=== PATIENT | male | born 1980 | race Caucasian/White ===

== ENCOUNTER 2023-02-18 16:22 | Emergency (ER) | payer OTHER, SELFPAY ==
[2023-02-18 16:28] VITALS: BP 125/76; PULSE 76; RESP 16; TEMP 36.8; O2SAT 97; BMI 29.7
--- NOTE | 2023-02-18 16:54 | ED_ITS ---
HPI - General Adult General Time Seen by Provider: 17:04 Date Seen: 02/18/23 Chief complaint: Extremity Pain/Injury, Lower Stated complaint: Right ankle injury Time Seen by Provider: 02/18/23 16:23 Source: patient Mode of arrival: ambulatory Limitations: no limitations History of Present Illness HPI narrative: Patient is a 42-year-old male presented emergency department for right ankle pain. He states he was and his since per when he was jumping up and down and felt a pop the posterior screw was right ankle and swelling. He is concerned he tore his Achilles tendon. Patient states there is only pain when he moves but does note the pain goes intermediate up his calf. Notes in the past and he tore his quadriceps tendon. Denies any injuries. Denies numbness of the ankle. Related Data Home Medications Medication Instructions Recorded Confirmed No Known Home Medications 02/18/23 02/18/23 Allergies Allergy/AdvReac Type Severity Reaction Status Date / Time No Known Drug Allergies Allergy Verified 02/18/23 16:32 Review of Systems Status of ROS: Reports: 6 or more systems reviewed and unremarkable except as noted in History and below PFSH PFSH Social History Smoking Status: Never smoker Do you use any of these nicotine containing products: None Second hand tobacco smoke exposure: No How often do you have a drink containing alcohol: 2-3 times a week AUDIT-C Alcohol total score: 3 Non-prescribed substance use: denies use service: No Exam Narrative: Exam Narrative: Const: Well-nourished, Well-developed, in mild distress Eyes: PERRL, no conjunctival injection, and symmetrical lids MSK: Tenderness noted to right posterior ankle and right mid calf region. Positive Wellington test. Unable to palpate the Achilles tendon on the right side. Skin: Warm, Dry. No rashes or lesions. Neuro: Normal Muscle tone, No focal neurological deficits. Psych: Awake, Alert, & Oriented x3. Appropriate mood and affect. Const: Vital Signs, click to edit/add: Vital Signs - 24 hr 02/18/23 16:28 02/18/23 18:57 Temperature 98.3 F Pulse Rate [Pulse Oximeter] 76 59 L Respiratory Rate 16 16 Blood Pressure [Ri ght Upper Arm] 125/76 115/76 Pulse Oximetry 97 97 Oxygen Delivery Me thod Room Air Room Air Course Vital Signs Vital signs: Initial Vital Signs Temperature 98.3 F 02/18/23 16:28 Temperature Source Temporal Artery Scan 02/18/23 16:28 Pulse Rate 76 02/18/23 16:28 Respiratory Rate 16 02/18/23 16:28 Blood Pressure 125/76 02/18/23 16:28 Blood Pressure Mean 92 02/18/23 16:28 Blood Pressure Position Sitting 02/18/23 16:28 Pulse Oximetry 97 02/18/23 16:28 Oxygen Delivery Method Room Air 02/18/23 16:28 Vital Signs Temperature 98.3 F 02/18/23 16:28 Pulse Rate 76 02/18/23 16:28 Respiratory Rate 16 02/18/23 16:28 Blood Pressure 125/76 02/18/23 16:28 Pulse Oximetry 97 02/18/23 16:28 Oxygen Delivery Method Room Air 02/18/23 16:28 Temperature 98.3 F 02/18/23 16:28 Pulse Rate 59 L 02/18/23 18:57 Respiratory Rate 16 02/18/23 18:57 Blood Pressure 115/76 02/18/23 18:57 Pulse Oximetry 97 02/18/23 18:57 Oxygen Delivery Method Room Air 02/18/23 18:57 Medical Decision Making MDM Narrative Medical decision making narrative: Patient's fluids here male presents emergency department for right ankle pain. States he was jumping down with her in a pop in his ankle. He has no swelling is concerned that he tore his Achilles tendon. Says the pain goes midway up his calf. Denies injury to his Achilles tendon in the past. On exam I and unable to palpate the Achilles tendon this time. I am concerned for rupture and did a point of care ultrasound. On my ultrasound it appears to show a completely torn Achilles tendon. Spoke to Orthopedics and they recommended an MRI for better visualization. MRI was ordered. It again shows completely toward the Achilles tendon. Patient will be placed in a short-leg splint in complete plantar flexion. Patient is given Toradol morphine for pain prior to the splint being placed. Discharge Plan Discharge Clinical Impression: Achilles tendon rupture Qualifiers: Encounter type: initial encounter Laterality: right Qualified Code(s): S86.011A - Strain of right Achilles tendon, initial encounter Patient Disposition: Home, Self-Care Condition: Stable Instructions: Achilles Tendon Rupture (ED) Additional Instructions: Take ibuprofen Tylenol for pain. Follow-up with orthopedics. Remove splint if you know should toes become discolored or painful. Use crutches and be nonweightbearing to that right foot. Return for new or worsening symptoms Prescriptions: No Action No Known Home Medications Follow Up/Referrals: Terence Roper MD [Primary Care Provider] - Stand Alone Forms: [employer] Info Instructions
--- NOTE | 2023-02-18 16:56 | CRLHL7_ITS ---
For Patients: As a result of the Century Cures Act, medical imaging exams and procedure reports are released immediately into your electronic medical record. You may view this report before your referring provider. If you have questions, please contact your health care provider. INDICATION: Achilles tendon rupture. COMPARISON: None. TECHNIQUE: Noncontrast MRI scan of the right ankle. FINDINGS: There is complete rupture of the Achilles tendon centered approximately 5 cm proximal to its calcaneus attachment. There is an approximate 4.5 cm gap in the torn tendon free edges. Associated hemorrhage and edema is present within the surrounding tissues. The bone marrow signal throughout the ankle and hindfoot is normal. No fracture is identified. There is a mild sprain of the calcaneofibular ligament. The remaining intrinsic ankle ligaments are intact. There is tendinosis and a small longitudinal split tear of the peroneus brevis. The peroneus longus tendon is intact. The tibialis posterior, flexor digitorum and flexor hallucis longus tendon as well as tibialis anterior, extensor hallucis longus and extensor digitorum longus tendons are intact. The plantar fascia is intact. IMPRESSION: 1. Achilles tendon rupture with retraction and approximate 4.5 centimeter rupture gap. 2. Mild sprain of the calcaneofibular ligament. 3. Mild tendinosis and small longitudinal split tear of the peroneus brevis. Dictated by Remy Moss MD @ 02/19/2023 7:21:38 AM (Electronically Signed)
[2023-02-18 18:57] VITALS: BP 115/76; PULSE 59; RESP 16; O2SAT 97
[2023-02-18] MEDS: KETOROLAC 30 MG/ML inj IM (19:07)
[2023-02-18] MEDS: MORPHINE 4 MG/ML INJ IM (19:08)
--- NOTE | 2023-02-18 19:14 | ED.NURSE ---
has been medicated with toradol 30mg and morphine 4mg (IM) (prior to getting splint placed). dr moreno was in to explain findings.
--- NOTE | 2023-02-18 19:40 | ED.NURSE ---
orthoglass splint applied and has own crutches. dc to home. will make his own appointment with ortho.
== END 2023-02-18 19:41 | disposition home or self-care (01) ==
PROVIDERS: Emergency Provider Student in an Organized Health Care Education/Training Program; PCP Family Medicine
DX: S86.011A Strain of right Achilles tendon, initial encounter (principal); Y93.39 Activity, other involving climbing, rappelling and jumping off
CPT/HCPCS: 29515; 73721; 96372; 99283; J1885; J2270

== ENCOUNTER 2023-02-28 06:23 | Day surgery (SDC) | payer OTHER, SELFPAY ==
[2023-02-28] VITALS (18 sets, daily range): BP systolic 108–134; BP diastolic 50–95; PULSE 48–58; RESP 12–16; TEMP 36.2–36.7; O2SAT 97–100; BMI 29.5
[2023-02-28] MEDS: LACTATED RINGERS 500 ML 500 ML 30 ML IV ×2 (06:30→08:10)
[2023-02-28] MEDS: SODIUM CHLORIDE 0.9 % (FLUSH) 10 ML SYRINGE IVF (06:56)
[2023-02-28] MEDS: MIDAZOLAM HCL 1 MG/ML inj 2 MG IVP (07:35)
[2023-02-28] MEDS: fentaNYL 100 MCG/2 ML inj IVP (07:35)
--- NOTE | 2023-02-28 07:46 | SUR.PREOP ---
TIME?OUT:?0735 PT/RN/MDA?VERIFICATION?OF?SURGICAL?SITE Right Leg,?PROCEDURE Pop block,?AND?CONSENT OBTAINED?PRIOR?TO?INVASIVE?PROCEDURE.
[2023-02-28] MEDS: CEFAZOLIN 2 GM in 0.9 % SODIUM CHLORIDE Mini-bag 100 ML IVPB (07:52)
--- NOTE | 2023-02-28 08:00 | W.ANESCHARGE ---
Anesthesia Charges Start Date/Time Anesthesia Start Date: 02/28/23 Anesthesia Start Time: 07:42 Stop Date/Time Anesthesia Stop Date: 02/28/23 Anesthesia Stop Time: 09:43
--- NOTE | 2023-02-28 08:13 | W.ANESCHARGE ---
Anesthesia Charges Start Date/Time Anesthesia Start Date: 02/28/23 Anesthesia Start Time: 07:42 Stop Date/Time Anesthesia Stop Date: 02/28/23 Anesthesia Stop Time: 09:43
--- NOTE | 2023-02-28 08:29 | W.PM.NB ---
Nerve Block Nerve Block Time Seen by Provider: 07:38 Date Seen: 02/28/23 Type of block requested by surgeon for post-operative analgesia: popliteal Side: right Time out performed: Yes Verification of patient name: Yes Verification of date of : Yes Site marking: site marked Name of person performing procedure: Wali Continuous monitoring Was continuous monitoring of O2 sat, B/P, environmental monitoring technician, recorded every 15 minutes?: Yes Procedure Checklist: sterile prep, needles and gloves Ultrasound guided. Images saved: Yes Medications given in 5ml increments after negative aspiration: Ropivicaine %: 0.5 mL: 20 Needle gauge: 22 Patient tolerated procedure well: Yes Additional comments: Needle noted adjacent to nerve Block Charges Block Charge (with Pro Fee): Sciatic Nerve Use of Ultrasound Machine for Block: Yes- US Guidance/pain block
--- NOTE | 2023-02-28 09:10 | P.ORPRC_ITS ---
Procedure Note Date of procedure: 02/28/23 Procedure: PREOPERATIVE DIAGNOSES: 1. Right Achilles tendon rupture, acute, closed POSTOPERATIVE DIAGNOSES: 1. Right Achilles tendon rupture, acute, closed NAME OF OPERATION: 1. Right Achilles tendon repair using PARS (percutaneous) device. SURGEON: Zay Berry MD ENVIRONMENTAL MONITORING SPECIALIST: Preston Mahan PA-C; Of note, an assistant professor of surgery was critical for this case to aide in patient positioning, leg manipulation, tissue retraction, closure, patient safety & splinting. ANESTHESIA: Spinal plus popliteal block EBL: 5 mL IMPLANTS: Arthrex 4.75 mm BioComposite SwiveLock suture anchor-x2. TOURNIQUET: 50 min at 300 torr. INDICATIONS: The patient is a pleasant 42-year-old male who sustained a right Achilles tendon rupture site within the last 10 days. He thought someone had kicked him in the back of his heel. He had difficulty walking and jumping thereafter. Thereafter, workup included an MRI which revealed a complete Achilles tendon rupture with retraction proximally. Given the patient's desire to remain physically active, particular with explosive sports such as basketball, surgery was recommended. FINDINGS: Closed, achilles tendon rupture. Hemorrhage was encountered after penetrating the paratenon. The Achilles indeed had migrated proximally, and the ends of the tendon were frayed like a mop end. PROCEDURE: Following a thorough discussion of risks, benefits, and alternatives, consent was obtained and the left Achilles was marked. The patient was brought to the operating room and placed supine on the operating table. Induction of anesthesia was undertaken. Appropriate time out was performed identifying pro per patient, site and procedure. 2 g IV Ancef was administered within 1 hour of incision preoperatively. The right lower extremity was prepped and draped in the appropriate sterile fashion using ChloraPrep prep after the patient had been positioned prone with all bone prominences well padded, and soft anatomic prominences free from pressure. The limb was exsanguinated and the tourniquet inflated. A transverse incision was made overlying the palpable gap in the Achilles tendon which ended up being approximately 6 cm proximal to the Achilles insertion on the posterior calcaneus. Sharp incision through skin and subcutaneous tissue, while protecting any crossing neurologic structures, was performed allowing the paratenon to be identified. This was also divided transversely, and indeed he morrhage was encountered. The tendon ends were identified, and freshen. The tendon was also freed from adhesions proximally circumferentially. Following this, the PARS device was inserted within the paratenon, and around the tendon itself. 7 different needles/sutures were passed according to the technique guide. #2 and 5 suture were looped underneath and through the locking cross stitches accordingly, and these were passed. The sutures were tugged on and found have an excellent control of the proximal Achilles tendon stump. Attention was then to the calcaneus. 2 small stab incisions were made medial and lateral to the convexity to the calcaneus posteriorly. Sharp incision through skin down to bone and hemostat to clear off the periosteum allowed us to drill, tap, and localized the planned anchors for the Achilles repair and a knotless fashion. The sutures were then passed through the distal tendon stump with the banana suture Lasso which came up through the tendon itself within the paratenon distally. After passing sutures, the foot was placed in maximum plantar flexion, and the sutures were secured into the drilled and tapped holes with 4.75 mm BioComposite SwiveLock suture anchor. This had excellent bite. The wound was thoroughly irrigated normal saline, and closure performed in layered fashion with #0 Vicryl for the paratenon, #2 Vicryl for subcutaneous, and 4-0 Statafix for subcuticular closure. Dermabond was applied, dressing applied, and a posterior splint applied with the foot in maximum plantar flexion. The patient was woken by anesthesia and transferred to PACU in stable condition. PLAN: 1. Elevate operative extremity. 2. Encouraged ice. 3. Percocet for pain as needed. 4. Toe-touch weight-bearing operative extremity 5. Follow up with PA visit in 10-14 days for splint removal and wound check. Transition to boot with heel lift and weightbear as tolerated at that time.
--- NOTE | 2023-02-28 10:24 | SUR.OPER ---
PATIENT QUESTIONS ANSWERED SATISFACTORILY PREOPERATIVELY.? PATIENT BROUGHT TO OR #2 PER CART AFTER ADMINISTRATION OF A BLOCK.? Patient positioned prone on OR #2 bed.? The perioperative?team supported arms bilaterally on arm boards.?Final approval of positioning by surgeon.?
--- NOTE | 2023-02-28 10:28 | SUR.PHASEI ---
patient met discharge criteria per anesthesia
== END 2023-02-28 11:54 | disposition home or self-care (01) ==
PROVIDERS: PCP Family Medicine; Visit Provider Orthopaedic Surgery Sports Medicine
PROC: (CPT 27650; principal; 2023-02-28 07:45)
DX: S86.011A Strain of right Achilles tendon, initial encounter (principal); G89.18 Other acute postprocedural pain
CPT/HCPCS: 27650; 01472; 64445; 76942; A4580; C1713; J0690; J2250; J2704; J2795; J3010; J3490; J7120

== ENCOUNTER 2023-04-12 14:45 | Outpatient (RCR) | payer OTHER, SELFPAY | END 2023-06-18 09:31 | disposition home or self-care (01) | PROVIDERS: PCP Family Medicine; Visit Provider Orthopaedic Surgery Sports Medicine | DX: S86.019A Strain of unspecified Achilles tendon, initial encounter (principal); M25.571 Pain in right ankle and joints of right foot; M25.671 Stiffness of right ankle, not elsewhere classified; M62.81 Muscle weakness (generalized); R26.9 Unspecified abnormalities of gait and mobility; Z98.890 Other specified postprocedural states; Z51.89 Encounter for other specified aftercare | CPT/HCPCS: 97110; 97116; 97140; 97161 ==

== ENCOUNTER 2024-09-30 15:10 | Outpatient (CLI) | payer OTHER, SELFPAY | END 2024-09-30 15:11 | disposition home or self-care (01) | LOC: MRI 15:10 | PROVIDERS: PCP Family Medicine; Visit Provider Emergency Medicine | DX: M54.50 Low back pain, unspecified (principal); M51.86 Other intervertebral disc disorders, lumbar region | CPT/HCPCS: 72148 ==

== ENCOUNTER 2025-03-09 15:00 | Outpatient (RCR) | payer OTHER, SELFPAY | END 2025-03-25 15:57 | disposition home or self-care (01) | PROVIDERS: PCP Family Medicine; Visit Provider Family Medicine | DX: M54.50 Low back pain, unspecified (principal); G89.29 Other chronic pain; M51.369 Other intervertebral disc degeneration, lumbar region without mention of lumbar back pain or lower extremity pain; Z51.89 Encounter for other specified aftercare | CPT/HCPCS: 97032; 97110; 97140; 97162 ==